=== PATIENT | male | born 1980 | race Caucasian/White ===

== ENCOUNTER 2020-01-17 13:39 | Emergency (ER) | payer OTHER ==
[~2020-01-17] VITALS: Ht 167.6 cm; Wt 113.4 kg
--- NOTE | 2020-01-17 13:39 | NUR ---
Patient BIB [place] [employer] for pre-booking medical screening exam, transferred to [facility]. RN evaluating patient.
[2020-01-17 13:40] VITALS: BP 101/70
--- NOTE | 2020-01-17 13:44 | NUR ---
39/M arlin MORGAN for prebooking medical clearance. Pt refusing to answer questions. Pt denies pain. When asked if he has any medical complaint pt remained quiet. Officers state patient "has been difficult." Pt states "I'm not being difficult I just don't want to talk." Pt denies any allergies. Pt in police custody at this time. Waiting for ERMD eval.
[2020-01-17 13:58] VITALS: BP 101/70
--- NOTE | 2020-01-17 13:58 | NUR ---
PATIENT EXAMINED BY DR. ARAUZ. PATIENT MEDICALLY CLEARED AND RELEASED IN CUSTODY IN STABLE CONDITION. ORIGINAL AND COPY OF PRE-BOOK FORM GIVEN TO OFFICER FORTINO. DISCHARGE INSTRUCTIONS GIVEN TO PATIENT.
== END 2020-01-17 13:58 ==
LOC: MED 13:39
DX: Z02.89 Encounter for other administrative examinations (principal)
CPT/HCPCS: 99283